=== PATIENT | male | born 1950 | race Caucasian/White ===

== ENCOUNTER → 2017-09-02 | Outpatient (CLI) | payer OTHER ==
--- NOTE | 2017-09-02 13:01 | RAD ---
History: Left shoulder pain Study: Left shoulder three views Findings: Three views the left shoulder demonstrates normal alignment at the glenohumeral joint. Ther e is mild narrowing of the AC joint. No fracture, bony destructive process or soft tissue calcificati on is demonstrated. Incidental note is made of sternal metallic sutures. 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 Reported By:
== END ==
LOC: RAD 11:49
PROVIDERS: ATTEND Nurse Practitioner Family
DX: M25.512 Pain in left shoulder (principal); M19.012 Primary osteoarthritis, left shoulder
CPT/HCPCS: 73030